=== PATIENT | male | born 1945 | race Caucasian/White ===

== ENCOUNTER 2016-11-03 05:50 | Emergency (ER) | payer OTHER ==
[~2016-11-03] VITALS: Ht 175.3 cm; Wt 68.0 kg
[~2016-11-03 05:50] MED LIST: DILT180C88; SIMV80TA73; WARF5TAB
[2016-11-03 07:11] LABS: Albumin 3.3 g/dL (3.4-5.0); BUN/Creatinine Ratio 12.5; Calcium 7.7 mg/dL (8.5-10.1); Potassium 3.8 mmol/L (3.5-5.1)
[2016-11-03 07:14] LABS: Bilirubin, Total 0.3 mg/dL (0.2-1.0); Partial Thromboplastin Time 30.6 sec (22.64-33.71); Total Protein 6.4 g/dL (6.4-8.2)
[2016-11-03 07:18] LABS: Basophils # (auto) 0 uL; Basophils % (auto) 0.3 % (0.0-2.0); Eosinophils # (auto) 0.1 uL; Eosinophils % (auto) 1.1 % (0.0-7.0); Hematocrit 38.5 % (41.0-53.0); Hemoglobin 12.3 g/dL (13.5-17.5); Lymphocytes # (auto) 1.3 uL; Lymphocytes % (auto) 18.2 % (10.0-50.0); Mean Corpuscular Hemoglobin 29.5 pg (28.0-32.0); Mean Corpuscular Hgb Conc. 31.8 g/dL (32.0-36.0); Mean Corpuscular Volume 92.5 fL (80.0-100.0); Mean Platelet Volume 9.1 fL (7.4-10.4); Monocytes # (auto) 0.5 uL; Monocytes % (auto) 6.5 % (0.0-12.0); Neutrophils # (auto) 5.4 uL; Neutrophils % (auto) 73.9 % (37.0-80.0); Platelet Count (auto) 231 10^3/uL (140-450); Red Cell Distribution Width 14.3 % (11.6-16.0); White Blood Cell 7.3 10^3/uL (4.4-10.8)
[2016-11-03 07:19] LABS: INR 1.3 (0.9-1.15); Prothrombin Time 13.4 sec (9.37-12.3)
[2016-11-03] MEDS ORDERED: SODIUM CHLORIDE 0.9% 1,000 ML IV ONE (07:32)
[2016-11-03 08:41] LABS: B-Type Natriuretic Peptide 13.81 pg/mL (0-100)
[2016-11-03 11:37] LABS: Temperature: 23.1 C (20.0-25.0)
[2016-11-03 12:35] VITALS: BP 113/64
== END 2016-11-03 12:39 | disposition short-term general hospital (02) ==
LOC: EDBD 05:50 → ER 05:50
DX: K92.2 Gastrointestinal hemorrhage, unspecified (principal); E46 Unspecified protein-calorie malnutrition; E11.65 Type 2 diabetes mellitus with hyperglycemia; E83.51 Hypocalcemia; Z86.73 Personal history of transient ischemic attack (TIA), and cerebral infarction without residual deficits
CPT/HCPCS: 36415; 71010; 80053; 83880; 84484; 85025; 85610; 85730; 93005; 96360; 96361

== ENCOUNTER 2020-04-26 22:09 | Inpatient (IN) | payer OTHER ==
[~2020-04-26] VITALS: Ht 175.3 cm; Wt 71.4 kg
[2020-04-26] MEDS ORDERED: ACETAMINOPHEN 325 MG TAB PO ONE (22:45)
[2020-04-26 23:06] LABS: Basophils # (auto) 0 10 ^3/uL (0-0.2); Basophils % (auto) 0.2 % (0.0-2.0); Eosinophils # (auto) 0 10 ^3/uL (0-0.8); Eosinophils % (auto) 0.1 % (0.0-7.0); Hematocrit 44.3 % (41.0-53.0); Hemoglobin 14.8 g/dL (13.5-17.5); Lymphocytes # (auto) 0.5 10 ^3/uL (0.4-5.4); Lymphocytes % (auto) 4.9 % (10.0-50.0); Mean Corpuscular Hemoglobin 31.4 pg (28.0-32.0); Mean Corpuscular Hgb Conc. 33.3 g/dL (32.0-36.0); Monocytes # (auto) 0.3 10 ^3/uL (0-1.3); Monocytes % (auto) 2.7 % (0.0-12.0); Neutrophils # (auto) 9.8 10 ^3/uL (1.6-8.6); Neutrophils % (auto) 92.1 % (37.0-80.0); Nucleated Red Blood Cells % 0.1 %; Platelet Count (auto) 146 10^3/uL (140-450); Red Blood Cells 4.71 10^6/uL (4.5-5.90); Red Cell Distribution Width 13.9 % (11.8-14.3); White Blood Cell 10.6 10^3/uL (4.4-10.8)
[2020-04-26 23:19] LABS: INR 3.32 (0.9-1.15)
[2020-04-26 23:23] LABS: Alanine Aminotransferase 21 U/L (16-61); Albumin 3.1 g/dL (3.4-5.0); Anion Gap 11 (5-15); Aspartate Aminotransferase 16 U/L (15-37); BUN/Creatinine Ratio 11.3; Blood Urea Nitrogen 16 mg/dL (7-18); Calcium 8.6 mg/dL (8.5-10.1); Carbon Dioxide 20 mmol/L (21-32); Chloride 110 mmol/L (98-107); GFR African American 63 mL/min; GFR Non-African American 52 mL/min; Glucose 163 mg/dL (74-106); Potassium 3.8 mmol/L (3.5-5.1); Sodium 141 mmol/L (136-145)
[2020-04-26 23:24] LABS: Lactic Acid w/Reflex 5.2 mmol/L (0.4-2.0)
[2020-04-26 23:28] LABS: Alkaline Phosphatase 62 U/L (45-117); Bilirubin, Total 0.8 mg/dL (0.2-1.0)
[2020-04-27] MEDS ORDERED: SODIUM CHLORIDE 0.9% 1,000 ML IV ONE (01:45)
[2020-04-27] MEDS ORDERED: cefTRIAXone 1GM/50ML D5W 50 ML IV ONE (01:45)
[2020-04-27] MEDS ORDERED: SODIUM CHLORIDE 0.9% 1,000 ML IV SCH (06:05)
[2020-04-27 06:12] LABS: Urine Bacteria FEW /hpf (None Seen); Urine Blood 2+ /uL (Negative); Urine Mucus FEW (None Seen); Urine Specific Gravity 1.025 (1.001-1.035); Urine WBC 325 /hpf (0 - 3)
[2020-04-27] MEDS ORDERED: DOCUSATE SOD 100 MG CAP PO PRN (06:15)
[2020-04-27] MEDS ORDERED: ONDANSETRON HCL 4 MG/2 ML VIAL IV PRN (06:15)
[2020-04-27] MEDS ORDERED: DEXTROSE (50%) 50ML SYRG IV PRN ×2 (06:15→15:45)
[2020-04-27] MEDS ORDERED: ACETAMINOPHEN 500 MG TAB PO PRN (06:15)
[2020-04-27 07:43] VITALS: BP 108/59
[2020-04-27] MEDS: InsuLIN REG 1unit/0.01ml Soln (100units/ml) SC SCH ×4 (08:00→22:00)
[2020-04-27] MEDS: ACCU-CHEK COMFORT CURVE STRIP VI SCH ×4 (09:03→22:55)
[2020-04-27 09:18] LABS: Basophils # (auto) 0 10 ^3/uL (0-0.2); Basophils % (auto) 0.2 % (0.0-2.0); Eosinophils # (auto) 0 10 ^3/uL (0-0.8); Hematocrit 42.5 % (41.0-53.0); Hemoglobin 13.9 g/dL (13.5-17.5); Lymphocytes # (auto) 0.5 10 ^3/uL (0.4-5.4); Lymphocytes % (auto) 4.2 % (10.0-50.0); Mean Corpuscular Hemoglobin 31.1 pg (28.0-32.0); Mean Corpuscular Hgb Conc. 32.7 g/dL (32.0-36.0); Monocytes # (auto) 0.8 10 ^3/uL (0-1.3); Monocytes % (auto) 6.6 % (0.0-12.0); Neutrophils # (auto) 11.3 10 ^3/uL (1.6-8.6); Nucleated Red Blood Cells % 0.1 %; Platelet Count (auto) 134 10^3/uL (140-450); Red Blood Cells 4.47 10^6/uL (4.5-5.90); Red Cell Distribution Width 14.3 % (11.8-14.3); White Blood Cell 12.7 10^3/uL (4.4-10.8)
[2020-04-27 09:47] LABS: Calcium 8.1 mg/dL (8.5-10.1); Potassium 3.6 mmol/L (3.5-5.1)
[2020-04-27] MEDS: ASCORBIC ACID 1,000 MG TAB PO SCH (09:51)
[2020-04-27 09:53] LABS: BUN/Creatinine Ratio 12.2
[2020-04-27] MEDS ORDERED: cefTRIAXone 1GM/50ML D5W 50 ML IV SCH (10:00)
[2020-04-27] MEDS ORDERED: DOXYCYCLINE 100 MG TAB/CAP PO SCH (10:00)
[2020-04-27] MEDS ORDERED: ENOXAPARIN SOD 40 MG/0.4 ML SYRINGE SC SCH (10:00)
[2020-04-27] MEDS ORDERED: ZINC SULFATE 220mg CAP or TAB PO SCH (10:00)
[2020-04-27 10:01] LABS: Folate (Folic Acid) 7.18 ng/mL (5.38-24)
[2020-04-27] MEDS ORDERED: ALBUTEROL SULF HFA 90MCG INH 200DOSE IN SCH (14:00)
--- NOTE | 2020-04-27 15:42 | NUR ---
EEG-UNABLE TO COMPLETE DUE TO EXCESSIVE ARTIFACTS.
[2020-04-27] MEDS ORDERED: dilTIAZem HCL 180MG ER CAP PO ONE (16:00)
[2020-04-27] MEDS: SODIUM CHLORIDE 0.9% 1,000 ML IV SCH (16:55)
[2020-04-27] MEDS ORDERED: PIPERACILLIN-TAZOB 3.375GM 100 ML IV ONE (17:15)
[2020-04-27] MEDS: ATORVASTATIN 20 MG TAB PO SCH (18:14)
[2020-04-27] MEDS ORDERED: LACTATED RINGER'S 1,000 ML IV ONE (18:15)
[2020-04-27] MEDS ORDERED: HYDROCORTISONE SOD SUCC 100 MG/2ML INJ VIAL IV ONE (18:15)
[2020-04-27] MEDS ORDERED: MEROPENEM 1GM IVPB 100 ML IV SCH (21:00)
[2020-04-28] MEDS ORDERED: PIPERACILLIN-TAZOB 3.375GM 100 ML IV SCH
[2020-04-28] MEDS: SODIUM CHLORIDE 0.9% 1,000 ML IV SCH ×3 (02:07→21:45)
[2020-04-28] MEDS ORDERED: SODIUM CHLORIDE 0.9% 1,000 ML IV ONE (02:15)
[2020-04-28 03:48] LABS: Basophils # (auto) 0 10 ^3/uL (0-0.2); Basophils % (auto) 0.1 % (0.0-2.0); Eosinophils # (auto) 0 10 ^3/uL (0-0.8); Hematocrit 39.6 % (41.0-53.0); Hemoglobin 12.9 g/dL (13.5-17.5); Lymphocytes # (auto) 1.3 10 ^3/uL (0.4-5.4); Lymphocytes % (auto) 8.4 % (10.0-50.0); Mean Corpuscular Hemoglobin 31.2 pg (28.0-32.0); Mean Corpuscular Hgb Conc. 32.6 g/dL (32.0-36.0); Mean Corpuscular Volume 95.8 fL (80.0-100.0); Monocytes # (auto) 1.2 10 ^3/uL (0-1.3); Monocytes % (auto) 8.1 % (0.0-12.0); Neutrophils # (auto) 12.6 10 ^3/uL (1.6-8.6); Neutrophils % (auto) 83.4 % (37.0-80.0); Platelet Count (auto) 113 10^3/uL (140-450); Red Blood Cells 4.13 10^6/uL (4.5-5.90); Red Cell Distribution Width 14.7 % (11.8-14.3); White Blood Cell 15.2 10^3/uL (4.4-10.8)
[2020-04-28 04:06] LABS: Potassium 3.9 mmol/L (3.5-5.1)
[2020-04-28 04:20] LABS: Albumin 2.3 g/dL (3.4-5.0); BUN/Creatinine Ratio 19.8; Bilirubin, Total 0.4 mg/dL (0.2-1.0); Calcium 7.5 mg/dL (8.5-10.1); Magnesium 2.3 mg/dL (1.6-2.6); Total Protein 5.8 g/dL (6.4-8.2)
[2020-04-28] MEDS: ACCU-CHEK COMFORT CURVE STRIP VI SCH ×4 (07:00→22:26)
[2020-04-28] MEDS ORDERED: ADENOSINE 61 MG in GIVE UN-DILUTED 0 ML IV STA (08:47)
[2020-04-28] MEDS: ASCORBIC ACID 1,000 MG TAB PO SCH (10:00)
[2020-04-28] MEDS: dilTIAZem HCL 180MG ER CAP PO SCH (10:00)
[2020-04-28 10:04] VITALS: BP 123/64
[2020-04-28] MEDS ORDERED: VANCOMYCIN PER PHARMACY 0 MG IV SCH (10:15)
[2020-04-28 11:41] LABS: INR 2.39 (0.9-1.15)
[2020-04-28] MEDS: VANCOMYCIN 1GM/250ML 250 ML IV SCH (14:41)
--- NOTE | 2020-04-28 15:34 | NUR ---
1530 04/28/20 I faxed transfer order and Notice Regarding Post Stabilization to [facility]-documents scanned into [employer]. I faxed today's MD progress notes, labs, xrays, vitals and medication list to [facility].
[2020-04-28] MEDS: MEROPENEM 1GM IVPB 100 ML IV SCH ×2 (16:29→22:26)
--- NOTE | 2020-04-28 16:46 | NUR ---
1630 04/28/20 I called [facility] and spoke with fiber analyst Katherin-requested to speak with assigned outsole caser regarding transfer order and continued inpatient authorization. Per Katherin the assigned outsole caser is Sena and she is not available right now. Katherin is not able to tell me whether or not they have any beds available-she did tell me that they received transfer order and today's clinical information. Per Katherin-outsole caser has to finish reviewing information before further authorization can be given.
[2020-04-28] MEDS ORDERED: WARFARIN SODIUM 2 MG TAB PO ONE (17:00)
[2020-04-28] MEDS: InsuLIN REG 1unit/0.01ml Soln (100units/ml) SC SCH ×2 (18:15→22:00)
[2020-04-28] MEDS: ATORVASTATIN 20 MG TAB PO SCH (18:48)
[2020-04-29] MEDS: VANCOMYCIN 1GM/250ML 250 ML IV SCH ×2 (01:33→14:29)
[2020-04-29] MEDS: MEROPENEM 1GM IVPB 100 ML IV SCH (06:05)
[2020-04-29] MEDS: InsuLIN REG 1unit/0.01ml Soln (100units/ml) SC SCH ×4 (06:50→22:00)
[2020-04-29] MEDS: ACCU-CHEK COMFORT CURVE STRIP VI SCH ×4 (06:50→22:00)
[2020-04-29 07:31] LABS: Basophils # (auto) 0 10 ^3/uL (0-0.2); Basophils % (auto) 0.5 % (0.0-2.0); Eosinophils # (auto) 0.1 10 ^3/uL (0-0.8); Eosinophils % (auto) 1.2 % (0.0-7.0); Hematocrit 38.4 % (41.0-53.0); Lymphocytes # (auto) 1.4 10 ^3/uL (0.4-5.4); Lymphocytes % (auto) 19.1 % (10.0-50.0); Mean Corpuscular Hemoglobin 31.5 pg (28.0-32.0); Mean Corpuscular Hgb Conc. 33.8 g/dL (32.0-36.0); Monocytes # (auto) 0.8 10 ^3/uL (0-1.3); Monocytes % (auto) 10.6 % (0.0-12.0); Neutrophils # (auto) 5.1 10 ^3/uL (1.6-8.6); Neutrophils % (auto) 68.6 % (37.0-80.0); Platelet Count (auto) 110 10^3/uL (140-450); Red Blood Cells 4.13 10^6/uL (4.5-5.90); Red Cell Distribution Width 14.3 % (11.8-14.3); White Blood Cell 7.5 10^3/uL (4.4-10.8)
[2020-04-29 07:44] LABS: INR 2.15 (0.9-1.15)
[2020-04-29 07:45] LABS: Calcium 7.5 mg/dL (8.5-10.1); Potassium 3.5 mmol/L (3.5-5.1)
[2020-04-29] MEDS: SODIUM CHLORIDE 0.9% 1,000 ML IV SCH ×2 (07:45→17:45)
[2020-04-29 07:48] LABS: BUN/Creatinine Ratio 21.7
[2020-04-29 07:50] LABS: Bilirubin, Total 0.6 mg/dL (0.2-1.0); Total Protein 5.5 g/dL (6.4-8.2)
[2020-04-29] MEDS: ASCORBIC ACID 1,000 MG TAB PO SCH (10:09)
[2020-04-29] MEDS: dilTIAZem HCL 180MG ER CAP PO SCH (10:10)
--- NOTE | 2020-04-29 10:45 | NUR ---
ER REPORT RECEIVED FROM JANUARY JANITORIAL SUPERVISOR. PATIENT IS AOX3, VS BP 108/70, P 108. PATIENT HAS NO SIGNS OF DISTRESS OR SOB. WILL AWAIT PATIENT ARRIVAL.
--- NOTE | 2020-04-29 10:45 | NUR ---
PT IS BEING TRANSFERRED TO MED SURG FLOOR. ATTEMPT P.T. LATER.
--- NOTE | 2020-04-29 11:00 | NUR ---
Opening Shift Note Assumed care of patient, awake and alert. No S/S of distress/SOB or pain. Instructed on POC and to call for assist PRN, will continue to monitor for changes Q1hr and PRN. Bed is locked and in lowest position. Call light within reach.
[2020-04-29 13:00] VITALS: BP 114/50
[2020-04-29] MEDS ORDERED: levoFLOXacin 750MG 150 ML IV ONE (14:45)
--- NOTE | 2020-04-29 15:41 | NUR ---
Transfer order faxed to [facility].
[2020-04-29] MEDS ORDERED: phytonadione 2.5 MG in SODIUM CHL 0.9% 50 ML IV ONE (16:45)
[2020-04-29 16:49] VITALS: BP 114/79
[2020-04-29] MEDS ORDERED: WARFARIN SODIUM 5 MG TAB PO ONE (17:00)
[2020-04-29] MEDS ORDERED: METF-370 PO (17:14)
[2020-04-29] MEDS ORDERED: PRAV20TA3 PO (17:17)
[2020-04-29] MEDS ORDERED: CHOL20007 PO (17:23)
[2020-04-29] MEDS ORDERED: VALP250C3 PO (17:23)
[2020-04-29] MEDS ORDERED: DILT30TA24 PO (17:23)
[2020-04-29] MEDS ORDERED: CYAN100061 PO (17:23)
[2020-04-29] MEDS: ATORVASTATIN 20 MG TAB PO SCH (18:35)
[2020-04-29 22:00] VITALS: BP 121/65
[2020-04-30] MEDS: VANCOMYCIN 1GM/250ML 250 ML IV SCH (01:07)
[2020-04-30] MEDS: SODIUM CHLORIDE 0.9% 1,000 ML IV SCH ×2 (03:45→17:45)
[2020-04-30 05:00] VITALS: BP 117/75
[2020-04-30] MEDS: ACCU-CHEK COMFORT CURVE STRIP VI SCH ×4 (06:15→22:00)
[2020-04-30] MEDS: InsuLIN REG 1unit/0.01ml Soln (100units/ml) SC SCH ×4 (06:15→22:00)
[2020-04-30 06:20] LABS: Basophils # (auto) 0.1 10 ^3/uL (0-0.2); Basophils % (auto) 0.8 % (0.0-2.0); Eosinophils # (auto) 0.1 10 ^3/uL (0-0.8); Eosinophils % (auto) 2.2 % (0.0-7.0); Hematocrit 38.8 % (41.0-53.0); Hemoglobin 13.2 g/dL (13.5-17.5); Lymphocytes # (auto) 1.3 10 ^3/uL (0.4-5.4); Lymphocytes % (auto) 18.6 % (10.0-50.0); Mean Corpuscular Hemoglobin 31.4 pg (28.0-32.0); Mean Corpuscular Hgb Conc. 33.9 g/dL (32.0-36.0); Mean Corpuscular Volume 92.5 fL (80.0-100.0); Monocytes # (auto) 0.8 10 ^3/uL (0-1.3); Neutrophils # (auto) 4.5 10 ^3/uL (1.6-8.6); Neutrophils % (auto) 66.4 % (37.0-80.0); Platelet Count (auto) 130 10^3/uL (140-450); Red Cell Distribution Width 14.2 % (11.8-14.3); White Blood Cell 6.8 10^3/uL (4.4-10.8)
[2020-04-30 06:33] LABS: INR 1.31 (0.9-1.15)
[2020-04-30 06:43] LABS: Calcium 7.9 mg/dL (8.5-10.1); Potassium 3.4 mmol/L (3.5-5.1)
[2020-04-30 06:49] LABS: BUN/Creatinine Ratio 16.9
[2020-04-30 08:00] VITALS: BP 106/73
[2020-04-30 09:10] VITALS: BP 106/73
[2020-04-30] MEDS: ASCORBIC ACID 1,000 MG TAB PO SCH (10:00)
[2020-04-30] MEDS: dilTIAZem HCL 180MG ER CAP PO SCH (10:00)
[2020-04-30] MEDS: levoFLOXacin 750MG 150 ML IV SCH (11:12)
--- NOTE | 2020-04-30 12:04 | NUR ---
assessment Patient is a 75 year old male who is alert and oriented. Patients cognitive abilities are intact. Prior to admission patient lived home with his Vaishali and functioned with assistance. Per patient he will return home to his prior living arrangements post discharge and his will transport him home. Patient informed me he has a fww, cane, and a wheelchair for home use. Patients PCP is at the [facility]. I informed patient he has a ss consult that he is concerned that he will be unable to perform ADL's at home. Patient informed me he has not been walking since he came and was admitted. Patient stated he has only been to the bedside commode. Patient wants to get up and walk. I have called and informed instructor physical education Gabriel to please work with patient daily. Other than that patient feels safe returning home on discharge. I will continue to monitor and follow up as appropriate. I informed patient he has a right to speak to a social professionals regarding all care. I informed patient he has a right to participate in any and all discharge planning. Patient does not have a POA and advanced directive. I have offered patient information on POA and advanced directives. I informed the patient the advantages and benefits of having an Advanced Directive. Patient verbalized understanding and agreed to discharge plan. Addendum: 04/30/20 at 1214 by Monica VALERO Amended: Links added.
--- NOTE | 2020-04-30 12:36 | NUR ---
Nutrition Assessment Notes please see attached link for complete assessment [employer] needs BW 77 [id number] kcals (23-25 kcal/kgBW), Est Protein needs: 77-84 gms/day (1.0-1.1 gm/kgBW). Will continue to monitor and reassess prn.. Addendum: 04/30/20 at [address] Amended: Links added.
[2020-04-30 12:48] VITALS: BP 154/82
[2020-04-30] MEDS ORDERED: POTASSIUM CHL 20 Meq TABLET PO ONE (14:30)
[2020-04-30 16:58] VITALS: BP 120/77
[2020-04-30] MEDS ORDERED: WARFARIN SODIUM 10 MG TAB PO ONE (17:00)
[2020-04-30] MEDS: ATORVASTATIN 20 MG TAB PO SCH (17:59)
[2020-04-30 22:00] VITALS: BP 127/77
[2020-05-01] MEDS: SODIUM CHLORIDE 0.9% 1,000 ML IV SCH ×2 (04:33→10:45)
[2020-05-01 05:00] VITALS: BP 115/58
[2020-05-01] MEDS: InsuLIN REG 1unit/0.01ml Soln (100units/ml) SC SCH ×4 (06:11→21:57)
[2020-05-01] MEDS: ACCU-CHEK COMFORT CURVE STRIP VI SCH ×4 (06:13→21:57)
[2020-05-01 06:18] LABS: Basophils # (auto) 0.1 10 ^3/uL (0-0.2); Basophils % (auto) 0.8 % (0.0-2.0); Eosinophils # (auto) 0.1 10 ^3/uL (0-0.8); Eosinophils % (auto) 2.2 % (0.0-7.0); Hematocrit 38.7 % (41.0-53.0); Hemoglobin 12.9 g/dL (13.5-17.5); Lymphocytes # (auto) 1.5 10 ^3/uL (0.4-5.4); Lymphocytes % (auto) 22.6 % (10.0-50.0); Mean Corpuscular Hgb Conc. 33.4 g/dL (32.0-36.0); Mean Corpuscular Volume 92.9 fL (80.0-100.0); Monocytes # (auto) 0.8 10 ^3/uL (0-1.3); Monocytes % (auto) 12.3 % (0.0-12.0); Neutrophils % (auto) 62.1 % (37.0-80.0); Platelet Count (auto) 152 10^3/uL (140-450); Red Blood Cells 4.17 10^6/uL (4.5-5.90); White Blood Cell 6.5 10^3/uL (4.4-10.8)
[2020-05-01 06:35] LABS: INR 1.12 (0.9-1.15)
[2020-05-01 06:38] LABS: Potassium 3.6 mmol/L (3.5-5.1)
[2020-05-01 06:47] LABS: Albumin 2.2 g/dL (3.4-5.0); BUN/Creatinine Ratio 12.3; Bilirubin, Total 0.6 mg/dL (0.2-1.0); Calcium 7.9 mg/dL (8.5-10.1); Total Protein 5.5 g/dL (6.4-8.2)
--- NOTE | 2020-05-01 07:48 | NUR ---
Opening Shift Note Assumed care of patient, patient comfortably sleeping in bed, on room air. Breath sounds are even and unlabored. No S/S of distress/SOB or pain. Bed at lowest locked position and call light within reach. Will continue to monitor for changes Q1hr and PRN.
[2020-05-01 08:00] VITALS: BP 107/56
--- NOTE | 2020-05-01 08:30 | NUR ---
Dr. Salguero at bedside.
[2020-05-01 09:00] VITALS: BP 107/56
[2020-05-01] MEDS: ASCORBIC ACID 1,000 MG TAB PO SCH (10:00)
[2020-05-01] MEDS: dilTIAZem HCL 180MG ER CAP PO SCH (10:00)
[2020-05-01] MEDS: levoFLOXacin 750MG 150 ML IV SCH (10:00)
--- NOTE | 2020-05-01 10:45 | NUR ---
ELECTROENCEPHALOGRAM EEG COMPLETED AT BEDSIDE. ELISABETH TODD.
[2020-05-01 13:00] VITALS: BP 127/65
[2020-05-01] MEDS ORDERED: IODIXANOL 320MG/ML 100ML BTL IV ONE ×2 (13:20→13:24)
[2020-05-01] MEDS ORDERED: LIDOCAINE 2%HCL (LOCAL ANESTH.) INJ 20ML MDV ONE (13:20)
[2020-05-01] MEDS ORDERED: ANGIOMAX 250 MG VIAL IV ONE (13:23)
[2020-05-01] MEDS ORDERED: HEPARIN SODIUM (PORCINE) 5000 UNITS/ML 1ML VIAL ONE (13:23)
[2020-05-01] MEDS ORDERED: VERAPAMIL 2.5MG/ML INJ 2ML VIAL IV ONE (13:23)
[2020-05-01] MEDS ORDERED: fentaNYL CITRATE 100 MCG/2 ML VL ONE (13:24)
[2020-05-01] MEDS ORDERED: SODIUM CHL 0.9% 0 ML ONE (13:24)
[2020-05-01] MEDS ORDERED: MIDAZOLAM HCL 1MG/1ML-2 ML VIAL ONE (13:24)
--- NOTE | 2020-05-01 15:08 | NUR ---
Transfer order faxed to [facility].
--- NOTE | 2020-05-01 15:35 | NUR ---
Started deflation of Vasc band. No signs of bleeding noted.
--- NOTE | 2020-05-01 16:45 | NUR ---
Removed vasc band from Left wrist. Pulses are present, no signs of bleeding, so swelling present. Patient tolerated well.
[2020-05-01 17:00] VITALS: BP 122/77
[2020-05-01] MEDS: ATORVASTATIN 20 MG TAB PO SCH (18:00)
--- NOTE | 2020-05-01 19:09 | NUR ---
closing note Patient is comfortably resting in bed, no s/s of distress/noted stated. Bed at lowest locked position and call light within reach care endorsed to NOC RN.
--- NOTE | 2020-05-01 19:40 | NUR ---
Opening Shift Note Assumed care of patient, awake and alert. No S/S of distress/SOB or pain. Instructed on POC and to call for assist PRN. Bed in lowest locked position, call light within reach, side rails up x2, fall precautions in place. Will continue to monitor for changes Q1hr and PRN.
[2020-05-01 22:00] VITALS: BP 123/70
[2020-05-02] MEDS: SODIUM CHLORIDE 0.9% 1,000 ML IV SCH ×2 (02:10→18:20)
[2020-05-02 05:00] VITALS: BP 134/71
--- NOTE | 2020-05-02 07:30 | NUR ---
Opening Shift Note Assumed care of patient, awake and alert. No S/S of distress/SOB or pain. Instructed on POC and to call for assist PRN, will continue to monitor for changes Q1hr and PRN.
[2020-05-02 09:00] VITALS: BP 131/85
[2020-05-02] MEDS: levoFLOXacin 750MG 150 ML IV SCH (09:34)
[2020-05-02] MEDS: dilTIAZem HCL 180MG ER CAP PO SCH (09:35)
[2020-05-02] MEDS: ASCORBIC ACID 1,000 MG TAB PO SCH (10:00)
--- NOTE | 2020-05-02 10:30 | NUR ---
IV pulled out accidently when patient turned in bed. Will restart IV. Will continue to monitor.
--- NOTE | 2020-05-02 10:53 | NUR ---
IV insertion IV access obtained, via clean sterile technique by inserting 20 gauge catheter at right forearm after 1 attempt. IV secured properly. No trauma to site. Patient tolerated procedure well.
[2020-05-02] MEDS: ACCU-CHEK COMFORT CURVE STRIP VI SCH ×3 (11:30→22:00)
[2020-05-02] MEDS: InsuLIN REG 1unit/0.01ml Soln (100units/ml) SC SCH ×3 (11:30→22:00)
[2020-05-02 11:49] LABS: INR 1.07 (0.9-1.15)
[2020-05-02 12:09] LABS: Calcium 8.6 mg/dL (8.5-10.1)
[2020-05-02 12:13] LABS: BUN/Creatinine Ratio 13.1
--- NOTE | 2020-05-02 12:54 | NUR ---
Dr. Jamel Gonzáles in to see patient as hospitalist.
--- NOTE | 2020-05-02 16:48 | NUR ---
Nutrition Followup Notes Pt wt is 74.6 kg Pt was awake, alert and oriented with no relatives at bedside when rounded this morning. Pt is with a CCHO 60g diet, appetite is improved aeb 75% PO intake per RN doc. Pt stated his appetite is much improved and feeling much better as well, no distress. Will continue to monitor PO status, skin status, pertinent labs and weight trends. Will f/u in 3-5 days. Est [employer] needs BW 77 [id number] kcals (23-25 kcal/kgBW), Est Protein needs: 77-84 gms/day (1.0-1.1 gm/kgBW). Will continue to monitor and reassess prn.. LABS: Ca 7.9 L, Alb 2.2 L GI: Pt had 1 BM on 05/02 per RN doc BS: 17 mod risk Refer to wound assessment report for full details. PES: Altered nutrition related lab values r.t current chronic medical condition aeb hyperglycemia hypocalcemia Comments 1) resume diet as medically feasible 2) refer to CDE on DC 3) continue current plan of care
[2020-05-02 17:00] VITALS: BP 116/69
[2020-05-02] MEDS: ATORVASTATIN 20 MG TAB PO SCH (17:06)
[2020-05-02 21:53] VITALS: BP 129/75
[2020-05-03 05:00] VITALS: BP 119/63
[2020-05-03] MEDS: InsuLIN REG 1unit/0.01ml Soln (100units/ml) SC SCH ×4 (06:45→21:19)
[2020-05-03] MEDS: ACCU-CHEK COMFORT CURVE STRIP VI SCH ×4 (06:45→20:39)
--- NOTE | 2020-05-03 07:21 | NUR ---
closing note Endorsed care to day shift RN no sob or distress noted.
[2020-05-03 09:00] VITALS: BP 120/76
[2020-05-03] MEDS: ASCORBIC ACID 1,000 MG TAB PO SCH (10:00)
[2020-05-03] MEDS: dilTIAZem HCL 180MG ER CAP PO SCH (10:19)
[2020-05-03] MEDS: levoFLOXacin 750MG 150 ML IV SCH (10:20)
[2020-05-03] MEDS: SODIUM CHLORIDE 0.9% 1,000 ML IV SCH (11:00)
[2020-05-03 13:00] VITALS: BP 122/71
[2020-05-03 17:00] VITALS: BP 110/68
[2020-05-03] MEDS: ATORVASTATIN 20 MG TAB PO SCH (18:00)
--- NOTE | 2020-05-03 19:20 | NUR ---
opening note assumed care of patient, patient alert and orientated x4 no sob or distress noted, POC reviewed, answered all questions at this time. Bed locked in lowest position, side rails up x2. call light with in reach will continue to monitor.
--- NOTE | 2020-05-03 21:30 | NUR ---
Bowel movement Patient had moderate amount of bowel movement on bedside commode. No distress noted, will continue to monitor.
[2020-05-03 22:00] VITALS: BP 129/74
[2020-05-04] MEDS: SODIUM CHLORIDE 0.9% 1,000 ML IV SCH (03:40)
[2020-05-04 05:00] VITALS: BP 120/65
[2020-05-04] MEDS: InsuLIN REG 1unit/0.01ml Soln (100units/ml) SC SCH ×2 (06:48→12:08)
[2020-05-04] MEDS: ACCU-CHEK COMFORT CURVE STRIP VI SCH ×2 (06:49→12:03)
--- NOTE | 2020-05-04 07:00 | NUR ---
Opening Shift Note Received report on the patient. Awake lying in bed. Patient shows no signs of distress at this time. Discussed the plan of care with the patient. Bed in lowest position, side rails up x2, and the call light is within reach.
--- NOTE | 2020-05-04 07:38 | NUR ---
closing note endorsed care to day shift RN no distress noted
[2020-05-04 09:04] VITALS: BP 118/77
[2020-05-04] MEDS: levoFLOXacin 750MG 150 ML IV SCH (09:30)
[2020-05-04] MEDS: ASCORBIC ACID 1,000 MG TAB PO SCH (09:31)
[2020-05-04] MEDS: dilTIAZem HCL 180MG ER CAP PO SCH (09:31)
--- NOTE | 2020-05-04 10:49 | NUR ---
Dr Salguero at bedside. New orders received.
--- NOTE | 2020-05-04 11:22 | NUR ---
DC'd soliz. Patient tolerated well.
[2020-05-04 12:23] VITALS: BP 99/68
[2020-05-04] MEDS ORDERED: ASPI-378 PO (12:42)
[2020-05-04] MEDS ORDERED: LEVO750T2 PO (12:42)
--- NOTE | 2020-05-04 14:51 | NUR ---
Called manager social media Tia to follow up on home health set up. Left message. Awaiting call back.
--- NOTE | 2020-05-04 14:56 | NUR ---
Called classification case manager Lauren to follow up on home health set up. Lauren stated she will fax information to [place] and they will set up there own home health. Patient ok to discharge.
--- NOTE | 2020-05-04 16:41 | NUR ---
Discharge instructions given as ordered. Encourage to follow up with PMD as instructed. All questions and concerns addressed. Patient verbalized understanding. Medication reconciliation form completed and copy given to patient. Home medications held in Pharmacy returned to patient. IV removed with catheter intact, pressure dressing applied. Telemetry unit returned to ICU. Patient taken to vehicle via wheelchair with all personal belongings, accompanied by staff and family member. No distress noted at time of departure.
== END 2020-05-04 16:40 | disposition home health service (06) | DRG 871 ==
LOC: EDBD 22:09 → ER 22:09 → OVERFLOW 22:10 → TELE-CENTR 04-29 11:00
PROVIDERS: ADMIT Hospitalist; ATTEND Internal Medicine
PROC: 4A023N7 Measurement of Cardiac Sampling and Pressure, Left Heart, Percutaneous Approach (ICD-10-PCS; principal; 2020-05-01)
PROC: B211YZZ Fluoroscopy of Multiple Coronary Arteries using Other Contrast (ICD-10-PCS; 2020-05-01)
PROC: B215YZZ Fluoroscopy of Left Heart using Other Contrast (ICD-10-PCS; 2020-05-01)
DX: A41.53 Sepsis due to Serratia (principal); G93.41 Metabolic encephalopathy; N17.0 Acute kidney failure with tubular necrosis; I21.A1 Myocardial infarction type 2; I50.33 Acute on chronic diastolic (congestive) heart failure; D68.9 Coagulation defect, unspecified; N39.0 Urinary tract infection, site not specified; I48.20 Chronic atrial fibrillation, unspecified; I13.0 Hypertensive heart and chronic kidney disease with heart failure and stage 1 through stage 4 chronic kidney disease, or unspecified chronic kidney disease; E86.0 Dehydration; E11.22 Type 2 diabetes mellitus with diabetic chronic kidney disease; F03.90 Unspecified dementia, unspecified severity, without behavioral disturbance, psychotic disturbance, mood disturbance, and anxiety; R27.0 Ataxia, unspecified; F17.200 Nicotine dependence, unspecified, uncomplicated; N18.9 Chronic kidney disease, unspecified; Z79.01 Long term (current) use of anticoagulants; Z03.818 Encounter for observation for suspected exposure to other biological agents ruled out; Z79.899 Other long term (current) drug therapy; Z86.73 Personal history of transient ischemic attack (TIA), and cerebral infarction without residual deficits; I25.10 Atherosclerotic heart disease of native coronary artery without angina pectoris; E11.65 Type 2 diabetes mellitus with hyperglycemia; B96.89 Other specified bacterial agents as the cause of diseases classified elsewhere
CPT/HCPCS: 36415; 36600; 70450; 71045; 76775; 78452; 80048; 80053; 80061; 80202; 81001; 82607; 82746; 82805; 82962; 83036; 83605; 83735; 83880; 84443; 84484; 85025; 85610; 85730; 87040; 87077; 87086; 87088; 87186; 93005; 93017; 93306; 96365; 99152; G0378; J0153; J0696; J1815; J1956; J2185; J2250; J2543; J3430; Q9967

== ENCOUNTER 2021-05-17 13:28 | Inpatient (IN) | payer OTHER ==
[~2021-05-17] VITALS: Ht 172.7 cm; Wt 88.3 kg
[~2021-05-17 13:28] MED LIST changes: +ASPI-378 PO; +CHOL20007 PO; +CYAN100061 PO; -DILT180C88; +DILT30TA PO; +LEVO750T8 PO; +METF-370 PO; +PRAV20TA3 PO; +VALP250C3 PO
[2021-05-17 14:05] LABS: Basophils # (auto) 0.1 10 ^3/uL (0-0.2); Eosinophils # (auto) 0.2 10 ^3/uL (0-0.8); Eosinophils % (auto) 3.1 % (0.0-7.0); Hematocrit 40.4 % (41.0-53.0); Hemoglobin 13.7 g/dL (13.5-17.5); Lymphocytes # (auto) 1.8 10 ^3/uL (0.4-5.4); Lymphocytes % (auto) 27.3 % (10.0-50.0); Mean Corpuscular Hemoglobin 32.3 pg (28.0-32.0); Monocytes % (auto) 15.5 % (0.0-12.0); Neutrophils # (auto) 3.6 10 ^3/uL (1.6-8.6); Neutrophils % (auto) 53.1 % (37.0-80.0); Nucleated Red Blood Cells % 0.1 %; Red Blood Cells 4.25 10^6/uL (4.5-5.90); White Blood Cell 6.7 10^3/uL (4.4-10.8)
[2021-05-17 14:23] LABS: Albumin 2.7 g/dL (3.4-5.0); BUN/Creatinine Ratio 25.6; Calcium 8.9 mg/dL (8.5-10.1); Potassium 4.9 mmol/L (3.5-5.1)
[2021-05-17 14:28] LABS: Bilirubin, Total 0.6 mg/dL (0.2-1.0); Total Protein 7.3 g/dL (6.4-8.2)
[2021-05-17] MEDS ORDERED: FUROSEMIDE 40 MG/4 ML VIAL IV ONE (15:30)
[2021-05-17] MEDS ORDERED: ENOXAPARIN SOD 80 MG/0.8ML SYRINGE SC ONE (15:30)
[2021-05-17 18:32] LABS: Urine Bacteria NONE SEEN /hpf (None Seen); Urine Blood Negative /uL (Negative); Urine Specific Gravity 1.014 (1.001-1.035); Urine WBC 1 /hpf (0 - 3)
[2021-05-17] MEDS ORDERED: ALBUMIN 25% 50 ML IV ONE (22:00)
[2021-05-17] MEDS: SODIUM CHLOR 0.9% PF (SALINE LOCK) 10ML VIAL/SYR IV SCH (22:00)
[2021-05-17] MEDS ORDERED: HYDROcodone-ACET 5/325MG TAB PO PRN (22:00)
[2021-05-17] MEDS ORDERED: NITROGLYCERIN 0.4 MG SL TAB SL PRN (22:00)
[2021-05-17] MEDS ORDERED: MORPHINE SULFATE INJECTION 2 MG/ML SYRG IV PRN (22:00)
[2021-05-17] MEDS ORDERED: ACETAMINOPHEN 325 MG TAB PO PRN (22:00)
[2021-05-17] MEDS ORDERED: DOCUSATE SOD 100 MG CAP PO PRN (22:00)
[2021-05-17] MEDS ORDERED: DEXTROSE (50%) 50ML SYRG IV PRN (22:00)
[2021-05-17] MEDS: ACCU-CHEK COMFORT CURVE STRIP VI SCH (22:45)
[2021-05-17] MEDS: ATORVASTATIN 20 MG TAB PO SCH (22:52)
[2021-05-17] MEDS: InsuLIN REG 1unit/0.01ml Soln (100units/ml) SC SCH (22:53)
[2021-05-17] MEDS: ASCORBIC ACID 500 MG TAB PO SCH (22:53)
[2021-05-17 23:50] LABS: INR 3.38 (0.9-1.15); Partial Thromboplastin Time 53.5 sec (23.6-33.0)
[2021-05-18 02:40] VITALS: BP 108/66
[2021-05-18 05:00] VITALS: BP 83/50
[2021-05-18] MEDS: SODIUM CHLOR 0.9% PF (SALINE LOCK) 10ML VIAL/SYR IV SCH ×3 (05:38→22:05)
[2021-05-18] MEDS: ACCU-CHEK COMFORT CURVE STRIP VI SCH ×2 (06:31→11:30)
[2021-05-18] MEDS: InsuLIN REG 1unit/0.01ml Soln (100units/ml) SC SCH ×2 (06:31→11:30)
[2021-05-18 06:53] LABS: Basophils # (auto) 0.1 10 ^3/uL (0-0.2); Basophils % (auto) 0.9 % (0.0-2.0); Eosinophils # (auto) 0.3 10 ^3/uL (0-0.8); Eosinophils % (auto) 4.7 % (0.0-7.0); Hematocrit 37.9 % (41.0-53.0); Hemoglobin 13.1 g/dL (13.5-17.5); Lymphocytes # (auto) 2.4 10 ^3/uL (0.4-5.4); Lymphocytes % (auto) 36.3 % (10.0-50.0); Mean Corpuscular Hemoglobin 32.9 pg (28.0-32.0); Mean Corpuscular Hgb Conc. 34.7 g/dL (32.0-36.0); Mean Corpuscular Volume 94.8 fL (80.0-100.0); Monocytes # (auto) 0.9 10 ^3/uL (0-1.3); Monocytes % (auto) 13.8 % (0.0-12.0); Neutrophils # (auto) 2.9 10 ^3/uL (1.6-8.6); Neutrophils % (auto) 44.3 % (37.0-80.0); Nucleated Red Blood Cells % 0.1 %; Red Blood Cells 3.99 10^6/uL (4.5-5.90); Red Cell Distribution Width 13.9 % (11.8-14.3); White Blood Cell 6.6 10^3/uL (4.4-10.8)
[2021-05-18 07:06] LABS: Albumin 2.6 g/dL (3.4-5.0); Calcium 8.4 mg/dL (8.5-10.1); Potassium 4.7 mmol/L (3.5-5.1)
[2021-05-18 07:12] LABS: BUN/Creatinine Ratio 26.2; Bilirubin, Total 0.8 mg/dL (0.2-1.0); Total Protein 6.8 g/dL (6.4-8.2)
[2021-05-18 09:00] VITALS: BP 96/60
[2021-05-18] MEDS: MULTIPLE VITAMIN TAB PO SCH (09:03)
[2021-05-18] MEDS: ASCORBIC ACID 500 MG TAB PO SCH (09:03)
[2021-05-18] MEDS: FAMOTIDINE (10MG/ML) 2ML VL IV SCH (09:03)
[2021-05-18] MEDS: ASPirin 81 mg TAB PO SCH ×2 (09:03→09:05)
[2021-05-18] MEDS: ZINC SULFATE 220mg CAP or TAB PO SCH (09:03)
[2021-05-18] MEDS ORDERED: ENOXAPARIN SOD 40 MG/0.4 ML SYRINGE SC SCH (10:00)
[2021-05-18] MEDS ORDERED: FUROSEMIDE 40 MG/4 ML VIAL IV SCH (10:00)
[2021-05-18 12:39] LABS: INR 3.03 (0.9-1.15); Partial Thromboplastin Time 46.9 sec (23.6-33.0)
[2021-05-18 13:00] VITALS: BP 108/63
[2021-05-18 16:39] VITALS: BP 102/61
[2021-05-18 22:00] VITALS: BP 104/68
[2021-05-18] MEDS: ATORVASTATIN 20 MG TAB PO SCH (22:05)
[2021-05-19 05:00] VITALS: BP 94/63
[2021-05-19 05:32] LABS: Basophils # (auto) 0.1 10 ^3/uL (0-0.2); Eosinophils # (auto) 0.3 10 ^3/uL (0-0.8); Eosinophils % (auto) 5.2 % (0.0-7.0); Hematocrit 37.8 % (41.0-53.0); Hemoglobin 12.8 g/dL (13.5-17.5); Lymphocytes # (auto) 2.3 10 ^3/uL (0.4-5.4); Lymphocytes % (auto) 35.4 % (10.0-50.0); Mean Corpuscular Hgb Conc. 33.8 g/dL (32.0-36.0); Mean Corpuscular Volume 94.6 fL (80.0-100.0); Monocytes % (auto) 14.9 % (0.0-12.0); Neutrophils # (auto) 2.8 10 ^3/uL (1.6-8.6); Neutrophils % (auto) 43.5 % (37.0-80.0); Red Blood Cells 3.99 10^6/uL (4.5-5.90); White Blood Cell 6.4 10^3/uL (4.4-10.8)
[2021-05-19 05:39] LABS: INR 2.25 (0.9-1.15)
[2021-05-19 05:49] LABS: Potassium 4.7 mmol/L (3.5-5.1)
[2021-05-19 05:55] LABS: BUN/Creatinine Ratio 26.6; Calcium 8.6 mg/dL (8.5-10.1)
[2021-05-19] MEDS: SODIUM CHLOR 0.9% PF (SALINE LOCK) 10ML VIAL/SYR IV SCH ×3 (06:01→21:28)
[2021-05-19 08:00] VITALS: BP 81/52
[2021-05-19] MEDS ORDERED: ENOXAPARIN SOD 40 MG/0.4 ML SYRINGE SC SCH (10:00)
[2021-05-19] MEDS: ZINC SULFATE 220mg CAP or TAB PO SCH (11:18)
[2021-05-19] MEDS: ASPirin 81 mg TAB PO SCH (11:18)
[2021-05-19] MEDS: MULTIPLE VITAMIN TAB PO SCH (11:18)
[2021-05-19] MEDS: FAMOTIDINE (10MG/ML) 2ML VL IV SCH (11:22)
[2021-05-19] MEDS ORDERED: Ensure HIGH Protein Chocolate 8oz Bottle PO SCH (12:00)
[2021-05-19 13:00] VITALS: BP 99/75
[2021-05-19] MEDS: FUROSEMIDE 40 MG TAB PO SCH (14:03)
[2021-05-19] MEDS: ONDANSETRON HCL 4 MG/2 ML VIAL IV PRN (14:04)
[2021-05-19 17:21] VITALS: BP 93/58
[2021-05-19] MEDS: ATORVASTATIN 20 MG TAB PO SCH (21:28)
[2021-05-19] MEDS: Glucerna Carbsteady SHAKE Vanilla 8oz PO SCH (21:28)
[2021-05-19 22:00] VITALS: BP 98/56
[2021-05-20 05:00] VITALS: BP 100/64
[2021-05-20] MEDS: SODIUM CHLOR 0.9% PF (SALINE LOCK) 10ML VIAL/SYR IV SCH ×3 (05:38→21:55)
[2021-05-20 08:04] LABS: Anion Gap 9 (5-15); BUN/Creatinine Ratio 20.7; Blood Urea Nitrogen 23 mg/dL (7-18); Calcium 7.8 mg/dL (8.5-10.1); Carbon Dioxide 21 mmol/L (21-32); Chloride 111 mmol/L (98-107); GFR African American 82 mL/min; GFR Non-African American 68 mL/min; Glucose 113 mg/dL (74-106); Potassium 4.4 mmol/L (3.5-5.1); Sodium 141 mmol/L (136-145)
[2021-05-20 09:11] VITALS: BP 100/72
[2021-05-20] MEDS: PANTOPRAZOLE 40 MG TAB PO SCH (11:04)
[2021-05-20] MEDS: Glucerna Carbsteady SHAKE Vanilla 8oz PO SCH ×3 (11:04→18:00)
[2021-05-20] MEDS: FUROSEMIDE 40 MG TAB PO SCH (11:04)
[2021-05-20] MEDS: MULTIPLE VITAMIN TAB PO SCH (11:04)
[2021-05-20] MEDS: ASPirin 81 mg TAB PO SCH (11:04)
[2021-05-20 13:00] VITALS: BP 103/72
[2021-05-20 16:24] VITALS: BP 94/65
[2021-05-20] MEDS: ATORVASTATIN 20 MG TAB PO SCH (21:55)
[2021-05-20 22:00] VITALS: BP 106/67
[2021-05-20] MEDS: ONDANSETRON HCL 4 MG/2 ML VIAL IV PRN (23:44)
[2021-05-21 05:00] VITALS: BP 91/57
[2021-05-21] MEDS: SODIUM CHLOR 0.9% PF (SALINE LOCK) 10ML VIAL/SYR IV SCH ×2 (06:09→13:35)
[2021-05-21 08:55] VITALS: BP 96/58
[2021-05-21] MEDS: Glucerna Carbsteady SHAKE Vanilla 8oz PO SCH ×2 (09:20→12:28)
[2021-05-21] MEDS: FUROSEMIDE 40 MG TAB PO SCH ×2 (09:20→16:56)
[2021-05-21] MEDS: ASPirin 81 mg TAB PO SCH (09:20)
[2021-05-21] MEDS: MULTIPLE VITAMIN TAB PO SCH (09:21)
[2021-05-21] MEDS: PANTOPRAZOLE 40 MG TAB PO SCH (09:21)
[2021-05-21] MEDS: ONDANSETRON HCL 4 MG/2 ML VIAL IV PRN (09:24)
[2021-05-21 13:00] VITALS: BP 93/66
== END 2021-05-21 17:54 | disposition home or self-care (01) | DRG 280 ==
LOC: ER 13:28 → EDBD 13:28 → TELE 21:48 → TELE-WESTW 23:38
PROVIDERS: ADMIT Nurse Practitioner Family; ATTEND Internal Medicine
DX: I21.4 Non-ST elevation (NSTEMI) myocardial infarction (principal); I50.43 Acute on chronic combined systolic (congestive) and diastolic (congestive) heart failure; I13.0 Hypertensive heart and chronic kidney disease with heart failure and stage 1 through stage 4 chronic kidney disease, or unspecified chronic kidney disease; D68.9 Coagulation defect, unspecified; E44.0 Moderate protein-calorie malnutrition; J91.8 Pleural effusion in other conditions classified elsewhere; D68.69 Other thrombophilia; E11.22 Type 2 diabetes mellitus with diabetic chronic kidney disease; Z20.822 Contact with and (suspected) exposure to COVID-19; I48.91 Unspecified atrial fibrillation; F03.90 Unspecified dementia, unspecified severity, without behavioral disturbance, psychotic disturbance, mood disturbance, and anxiety; I25.10 Atherosclerotic heart disease of native coronary artery without angina pectoris; N18.9 Chronic kidney disease, unspecified; R29.6 Repeated falls; Z79.01 Long term (current) use of anticoagulants; Z79.899 Other long term (current) drug therapy; Z86.73 Personal history of transient ischemic attack (TIA), and cerebral infarction without residual deficits; Z91.81 History of falling
CPT/HCPCS: 36415; 71045; 71250; 76604; 80048; 80053; 81001; 82962; 83036; 83880; 84484; 85025; 85610; 85730; 87426; 93005; 93306; 96365; 96372; 96375; 97110; 97116; 97163; 97530; G0378; J1815; J2405; J3490

== ENCOUNTER 2022-11-20 12:26 | Emergency (ER) | payer OTHER ==
[~2022-11-20] VITALS: Ht 180.3 cm; Wt 81.8 kg
[2022-11-20] MEDS ORDERED: SODIUM CHLORIDE 0.9% 500 ML IV ONE (13:00)
[2022-11-20 13:15] LABS: Basophils # (auto) 0.1 10 ^3/uL (0-0.2); Basophils % (auto) 0.9 % (0.0-2.0); Eosinophils # (auto) 0.2 10 ^3/uL (0-0.8); Eosinophils % (auto) 3.4 % (0.0-7.0); Hematocrit 29.5 % (41.0-53.0); Hemoglobin 10.4 g/dL (13.5-17.5); Lymphocytes # (auto) 1.3 10 ^3/uL (0.4-5.4); Lymphocytes % (auto) 19.6 % (10.0-50.0); Mean Corpuscular Hemoglobin 31.7 pg (28.0-32.0); Mean Corpuscular Hgb Conc. 35.2 g/dL (32.0-36.0); Mean Corpuscular Volume 90.1 fL (80.0-100.0); Monocytes % (auto) 14.7 % (0.0-12.0); Neutrophils # (auto) 4.1 10 ^3/uL (1.6-8.6); Neutrophils % (auto) 61.4 % (37.0-80.0); Red Blood Cells 3.28 10^6/uL (4.5-5.90); Red Cell Distribution Width 14.4 % (11.8-14.3); White Blood Cell 6.7 10^3/uL (4.4-10.8)
[2022-11-20 14:42] LABS: BUN/Creatinine Ratio 21.3; Potassium 3.9 mmol/L (3.5-5.1)
[2022-11-20 14:43] LABS: Albumin 2.8 g/dL (3.4-5.0); Bilirubin, Total 0.8 mg/dL (0.2-1.0); Calcium 7.9 mg/dL (8.5-10.1); Magnesium 2.3 mg/dL (1.6-2.6); Total Protein 6.4 g/dL (6.4-8.2)
[2022-11-20 19:50] VITALS: BP 114/72
== END 2022-11-20 19:57 | disposition home or self-care (01) ==
LOC: EDBD 12:26 → ER 12:26
DX: I95.9 Hypotension, unspecified (principal); R79.1 Abnormal coagulation profile; I50.9 Heart failure, unspecified; E11.9 Type 2 diabetes mellitus without complications; Z86.73 Personal history of transient ischemic attack (TIA), and cerebral infarction without residual deficits; Z79.82 Long term (current) use of aspirin; Z79.01 Long term (current) use of anticoagulants; Z79.2 Long term (current) use of antibiotics; Z79.899 Other long term (current) drug therapy
CPT/HCPCS: 36415; 71045; 71275; 73590; 80053; 82962; 83605; 83735; 84484; 85025; 85379; 93005; 96360; 96361; 99285; J7040; Q9967

== ENCOUNTER 2023-08-01 18:28 | Emergency (ER) | payer OTHER ==
[~2023-08-01] VITALS: Ht 180.3 cm; Wt 82.0 kg
[~2023-08-01 18:28] MED LIST changes: -ASPI-378 PO; +BISO5TAB44 PO; -CHOL20007 PO; -CYAN100061 PO; -DILT30TA PO; +FURO1TAB31 PO; -LEVO750T8 PO; +POTA10TA51 PO; -SIMV80TA73; +WARF-66 PO; -WARF5TAB; +WARF5TAB PO
[2023-08-01 23:00] VITALS: BP 131/71; PULSE 69; RESP 16; TEMP 97.5; O2SAT 99
== END 2023-08-01 23:10 | disposition home or self-care (01) ==
LOC: EDBD 18:28 → ER 18:28
DX: S01.01XA Laceration without foreign body of scalp, initial encounter (principal); E11.9 Type 2 diabetes mellitus without complications; Z86.73 Personal history of transient ischemic attack (TIA), and cerebral infarction without residual deficits; W18.09XA Striking against other object with subsequent fall, initial encounter; Y93.89 Activity, other specified; Y92.89 Other specified places as the place of occurrence of the external cause; Y99.8 Other external cause status
CPT/HCPCS: 12001; 70450

== ENCOUNTER 2024-03-02 19:21 | Emergency (ER) | payer OTHER ==
[~2024-03-02] VITALS: Ht 175.3 cm; Wt 68.0 kg
[~2024-03-02 19:21] MED LIST changes: +POTA-36 PO; -POTA10TA51 PO
[2024-03-02 19:56] LABS: Basophils # (auto) 0 10 ^3/uL (0-0.2); Basophils % (auto) 0.3 % (0.0-2.0); Eosinophils # (auto) 0 10 ^3/uL (0-0.8); Eosinophils % (auto) 0.4 % (0.0-7.0); Hematocrit 33.1 % (41.0-53.0); Lymphocytes # (auto) 1.1 10 ^3/uL (0.4-5.4); Lymphocytes % (auto) 9.7 % (10.0-50.0); Mean Corpuscular Hemoglobin 30.1 pg (28.0-32.0); Mean Corpuscular Hgb Conc. 33.3 g/dL (32.0-36.0); Mean Corpuscular Volume 90.3 fL (80.0-100.0); Monocytes # (auto) 1.9 10 ^3/uL (0-1.3); Monocytes % (auto) 17.7 % (0.0-12.0); Neutrophils # (auto) 7.8 10 ^3/uL (1.6-8.6); Neutrophils % (auto) 71.9 % (37.0-80.0); Red Blood Cells 3.66 10^6/uL (4.5-5.90); White Blood Cell 10.9 10^3/uL (4.4-10.8)
[2024-03-02 20:05] LABS: Chloride 104 mmol/L (98-107); Potassium 4.7 mmol/L (3.5-5.1); Sodium 139 mmol/L (136-145)
[2024-03-02 20:06] LABS: Anion Gap 4 (5-15); Calcium 9.1 mg/dL (8.7-10.4); Carbon Dioxide 31 mmol/L (20-30)
[2024-03-02 20:11] LABS: BUN/Creatinine Ratio 13.4 (10.0-20.0); Blood Urea Nitrogen 20 mg/dL (9-23); Glucose 210 mg/dL (74-106)
[2024-03-02 20:17] LABS: Prothrombin Time 48.2 sec (9.3-11.8)
[2024-03-02 20:21] LABS: INR 5.13 (0.9-1.15)
[2024-03-02] MEDS: MORPHINE SULFATE 4 MG/ML SYR/VIAL IV ONE (23:59)
[2024-03-03] VITALS: PULSE 76; RESP 16; O2SAT 99
[2024-03-03 00:06] VITALS: BP 90/43; PULSE 76; RESP 16; TEMP 97.7; O2SAT 99
[2024-03-03] MEDS: HYDROcodone-ACET 5/325MG TAB PO ONE (00:14)
== END 2024-03-03 22:01 | disposition home or self-care (01) ==
LOC: ER 19:21 → EDBD 19:21 → ER 03-03 00:54
DX: M79.89 Other specified soft tissue disorders (principal); M79.652 Pain in left thigh; I50.9 Heart failure, unspecified; E11.9 Type 2 diabetes mellitus without complications; R56.9 Unspecified convulsions; Z85.9 Personal history of malignant neoplasm, unspecified; Z98.890 Other specified postprocedural states; Z86.73 Personal history of transient ischemic attack (TIA), and cerebral infarction without residual deficits; W01.0XXA Fall on same level from slipping, tripping and stumbling without subsequent striking against object, initial encounter; Y93.89 Activity, other specified; Y92.89 Other specified places as the place of occurrence of the external cause; Y99.8 Other external cause status
CPT/HCPCS: 36415; 72170; 73562; 73700; 80048; 85025; 85610